=== PATIENT | female | born 2000 | race Caucasian/White ===

== ENCOUNTER → 2022-03-31 | Outpatient (CLI) | payer OTHER, SELFPAY ==
[2022-03-31 17:05] LABS: Lipase 116 U/L (73-393)
== END | disposition home or self-care (01) ==
PROVIDERS: Visit Provider Nurse Practitioner Family
DX: R10.84 Generalized abdominal pain (principal)
CPT/HCPCS: 83690

== ENCOUNTER 2022-12-09 15:18 | Emergency (ER) | payer OTHER, SELFPAY ==
[2022-12-09 15:19] VITALS: BP 130/89; PULSE 87; RESP 14; TEMP 36.1; O2SAT 100; BMI 23.1
--- NOTE | 2022-12-09 16:33 | ED.VIS.GI ---
HPI HPI - GI History of Present Illness Chief Complaint: Abd Pain Narrative Narrative: 22-year-old female presenting with complaint of headache. She states she believes she started to have a migraine today. She went home from work and took her Maxalt which did not initially. She states that now her headache pain is about an 8 and feels like it is radiating behind both eyes back down to the back of her head. Denies any trauma. She has mild nausea associated with this. She does have some chronic abdominal pain symptoms. She states has had these worked up before. She is seeing a GI doctor in [place] and had upper and lower endoscopy. She states nobody can figure out what is wrong with her. She states he typically will go to the urgent care or to her primary care doctor when she starts to get symptoms of what she calls a flareup. She states currently her abdominal pain has been there for about 4 days. She reports that it is around the umbilicus. Sometimes it radiates to just above the umbilicus. Last menstrual period was November 21. She states she is monogamous with her boyfriend and the use condoms. She does not believe she is . Denies any urinary or vaginal complaints. She has had some diarrhea. PFSH PFSH Home Medications metoclopramide HCl 10 mg tablet (Reglan) 10 mg PO Q6H PRN nausea and vomiting #14 tabs 12/09/22 [Rx Last Taken Unknown] Allergy/AdvReac Type Severity Reaction Status Date / Time No Known Allergies Allergy Verified 12/09/22 15:19 Social History Smoking Status: Never smoker ROS ROS ED Constitutional Constitutional ED: Denies chills or fever(s) ENT ENT ED: Denies rhinorrhea or sore throat Cardiovascular Cardiovascular: Denies chest pain or palpitations Respiratory/Chest Respiratory/Chest: Denies cough or dyspnea Gastrointestinal Gastrointestinal: Reports abdominal pain, diarrhea and nausea Genitourinary Genitourinary ED: Denies dysuria or hematuria Musculoskeletal Musculoskeletal: Denies arthralgias or back pain Integumentary Denies abscess or Abrasions Neurologic Neurologic: Reports headache(s); Denies paresthesias or weakness Psychiatric Psychiatric: Denies anxiety or depression EXAM Physical Exam Const Vital Signs: 12/09/22 15:19 12/09/22 17:18 Temperature 97 F L Temperature Source Temporal Pulse Rate 87 80 Respiratory Rate 14 16 Blood Pressure 130/89 H 111/70 Blood Pressure Mean 102 83 Pulse Ox 100 Oxygen Delivery Method Room Air Positive well nourished General Appearance ED: NAD; Negative for pallor HEENT Reports moist mucous membranes normocephalic and atraumatic Eyes PERRL and EOMs intact bilaterally Resp normal respiratory effort Effort and Inspection: Negative for respiratory distress Cardio regular rate and regular rhythm Neuro CN's II-XII intact bilaterally, moves all extremities and no sensory deficits noted Sensorium / Orientation: alert Motor Exam: strength 5/5 throughout Psych mental status grossly normal Skin General Skin Exam: Negative for jaundice or pallor MDM MDM MDM Narrative Medical decision making narrative: 22-year-old female presenting initially for headache which she believes was a migraine. She states that Maxalt did not help. She is got some chronic nausea and abdominal cramping which she states has had evaluated multiple times in the past. She states typically she goes to the urgent care, and did go there today. She states she has an 8 of 10 headache. She also complains of abdominal pain which is cramping in nature around the umbilicus and just above. It is notable that the patient is smiling and laughing while she is given her chief complaints. Her abdominal exam is benign. Differential at this point could be a viral syndrome, colitis, UTI, pyelonephritis, migraine headache. Patient was medicated with Reglan and Benadryl. CBC was obtained to assess white blood cell count, hemoglobin, differential. CMP to assess liver function, renal function, glucose, anion gap. Lipase to assess for pancreatitis. Urinalysis to assess for UTI. Blood work ultimately unremarkable with exception of a potassium of 3.1 which was repleted orally. Patient's headache improved as well. I counseled the patient that I do not believe she needs a CT scan of her abdomen given her normal blood work. Since she is feeling better I will send her home with some Reglan. Return precautions discussed. Impression: 1. Headache 2. Abdominal pain 3. Hypokalemia Lab Data Labs: Laboratory Results - last 24 hr 12/09/22 12/09/22 12/09/22 16:50 16:50 17:50 WBC 9.0 RBC 5.35 Hgb 15.7 H Hct 44.8 MCV 83.7 MCH 29.3 MCHC 35.0 RDW Std Deviation 38.5 RDW Coeff of Alejandra 12.8 Plt Count 264 MPV 9.7 Immature Gran % (Auto) 0.400 Neut % (Auto) 65.6 Lymph % (Auto) 20.2 [place] % (Auto) 12.4 H Eos % (Auto) 1.0 Baso % (Auto) 0.4 Absolute Neuts (auto) 5.9 Absolute Lymphs (auto) 1.81 Nucleated RBC % 0 Sodium 139 Potassium 3.1 L Chloride 106 Carbon Dioxide 25.0 Anion Gap 8 BUN 16 Creatinine 0.67 Estim Creat Clear Calc 130.25 Est GFR (MDRD) Af Amer 143 Est GFR (MDRD) Non-Af 118 BUN/Creatinine Ratio 23.7 H Glucose 90 Calcium 9.3 Total Bilirubin 0.70 AST 27 ALT 37 Alkaline Phosphatase 59 Total Protein 7.5 Albumin 3.9 Globulin 3.6 Albumin/Globulin Ratio 1.1 Lipase 91 Urine Color Yellow Urine Clarity Clear Urine pH 6.0 Ur Specific [place] 1.015 Urine Protein 30 H Urine Glucose (UA) Normal Urine Ketones 5 H Urine Occult Blood 25 H Urine Nitrite Negative Urine Bilirubin Negative Urine Urobilinogen Normal Ur Leukocyte Esterase 25 H Urine RBC 0 SEEN Urine WBC 0 SEEN Ur Squamous Epith Cells 0-5 SEEN Urine Bacteria 0 SEEN Urine Mucus 1+ Urine Test Negative Discharge Plan Triage Chief Complaint: Abd Pain ED Provider: Benson Ng Dx/Rx/DC Orders Instructions: Preventing Migraine Headaches ..., ED Abdominal Pain Unkn Cause Fem, ED Hypokalemia, ED Potassium-Rich Foods Prescriptions: New metoclopramide HCl [Reglan] 10 mg tablet 10 mg PO Q6H PRN (Reason: nausea and vomiting) Qty: 14 0RF Primary Care Provider: NGHIA GILLIAM Referrals: NGHIA GILLIAM [Other] Disposition Disposition: Home, Self Care Discharge Date/Time: 12/09/22 19:07
[2022-12-09] MEDS: 0.9% Normal Saline 1,000 ML 1000 ML IV (16:49)
[2022-12-09] MEDS: DiphenhydrAMINE 50 MG/ML Syringe 25 MG IV (16:51)
[2022-12-09] MEDS: Metoclopramide 10 MG/2 ML Vial IV (16:54)
[2022-12-09 17:13] LABS: Absolute Lymphocyte Count 1.81 X10^3/uL (0.83-4.51); Absolute Neutrophil Count 5.9 X10^3/uL (2.0-7.7); Basophil# 0.04 X10^3/uL; Basophil% 0.4 % (0-1); Eosinophil# 0.09 X10^3/uL; Hematocrit 44.8 % (37-47); Hemoglobin 15.7 g/dL (12.0-15.0); Lymphocyte # 1.81 X10^3/ul (0.83-4.51); Lymphocyte % 20.2 % (19-41); Mean Corpuscular Hgb 29.3 pg (27.0-32.0); Mean Corpuscular Volume 83.7 fL (81-99); Mean Platelet Vol. 9.7 fl (6.2-12.0); Monocyte# 1.11 X10^3/uL; Monocyte% 12.4 % (0-10); NRBC Flagged by Analyzer 0 % (0-5); Neutrophil # 5.87 X10^3/uL (2.7-7.7); Neutrophil % 65.6 % (47-70); Platelet Count 264 K/mm3 (150-450); RBC Distribution Width CV 12.8 % (11.6-14.6); RBC Distribution Width SD 38.5 fl (35.1-43.9); Red Blood Count 5.35 M/mm3 (4.2-5.4)
[2022-12-09 17:18] VITALS: BP 111/70; PULSE 80; RESP 16
[2022-12-09 17:23] LABS: ALB/GLOB Ratio 1.1 RATIO (0.9-2.4); AST(SGOT) 27 U/L (15-37); Alanine Aminotransfer ALT/SGPT 37 U/L (13-56); Albumin, Serum 3.9 g/dL (3.2-5.0); Alkaline Phosphatase 59 U/L (45-117); Anion Gap 8 (5-15); BUN 16 mg/dL (7-18); BUN/Creat Ratio 23.7 RATIO (10-20); Calcium,Total 9.3 mg/dL (8.5-10.1); Chloride 106 mmol/L (98-107); Creatinine, Serum 0.67 mg/dL (0.55-1.02); EST Glomerular Filtration Rate 118 mL/min (>60); Est Glom Filt Rate - Afr Amer 143 mL/min (>60); Estimated Creatinine Clearance 130.25 ml/min; Globulin 3.6 g/dL (2.2-4.2); Glucose 90 mg/dL (74-106); Lipase 91 U/L (73-393); Potassium 3.1 mmol/L (3.5-5.1); Protein, Total 7.5 g/dL (6.4-8.2); Sodium Level 139 mmol/L (136-145)
[2022-12-09 17:53] LABS: Bacteria 0 SEEN /hpf (None Seen); Red Blood Cells-Urine 0 SEEN /hpf (0-5); White Blood Cells 0 SEEN /hpf (0-5)
[2022-12-09 18:25] LABS: Color, Urine Yellow (Yellow); Glucose, Dipstick Normal (Normal); Ketone-Dipstick 5 mg/dl (Negative); Leukocyte Esterase-Dipstick 25 /ul (Negative); Nitrite-Dipstick Negative (Negative); Occult Blood-Urine 25 /ul (Negative); Protein-Dipstick 30 mg/dl (Negative); Specific Gravity, Urine 1.015 (1.002-1.030); Urine Bilirubin Dipstick Negative (Negative); Urine Clarity Clear (Clear); Urine Urobilinogen Normal (Normal)
[2022-12-09 18:37] LABS: Internal QC Validated? YES +Cl - CLEAR BKGD; Mucous, Urine 1+ /hpf (<or=2+); Pregnancy, Urine Negative Negative; Squamous Epithelial Cells - UA 0-5 SEEN /hpf (5-10)
[2022-12-09] MEDS: Potassium Chloride Oral Tablet 20 MEQ 40 MEQ PO (19:00)
== END 2022-12-09 19:07 | disposition home or self-care (01) ==
PROVIDERS: Emergency Provider Student in an Organized Health Care Education/Training Program; Visit Provider Student in an Organized Health Care Education/Training Program
DX: R10.9 Unspecified abdominal pain (principal); E87.6 Hypokalemia; R51.9 Headache, unspecified; G89.29 Other chronic pain
CPT/HCPCS: 80053; 81001; 81025; 83690; 85025; 96361; 96374; 96375; 99285; J7030